=== PATIENT | male | born 1950 | race Caucasian/White ===

== ENCOUNTER → 2016-06-11 | Outpatient (CLI) | payer OTHER ==
[2016-06-11 14:14] LABS: BASOPHILS # (AUTO) 0.03 10*3/UL; BASOPHILS % (AUTO) 0.5 % (0-1); EOSINOPHILS # (AUTO) 0.11 10*3/UL; EOSINOPHILS % (AUTO) 1.7 % (0-8); HEMATOCRIT 42.6 % (42.0-52.0); HEMOGLOBIN 14.4 g/dL (14.0-18.0); LYMPHOCYTES # (AUTO) 1.45 10*3/uL; MEAN CORPUSCULAR HEMOGLOBIN 30.6 PG (27-31); MEAN CORPUSCULAR HGB CONC 33.8 g/dL (33-37); MEAN CORPUSCULAR VOLUME 90.6 FL (80-90); MEAN PLATELET VOLUME 9.8 FL (7.4-12.2); MONOCYTES # (AUTO) 0.65 10*3/UL (0.3-0.8); NEUTROPHILS # (AUTO) 4.22 10*3/UL; NEUTROPHILS % (AUTO) 65.2 % (50-80)
[2016-06-11 14:19] LABS: PLATELET MORPHOLOGY COMMENT NORMAL MORPHOLOGY (NORM); RBC MORPHOLOGY COMMENT NORMAL MORPHOLOGY (NORM); WBC MORPHOLOGY COMMENT NORMAL MORPHOLOGY (NORM)
[2016-06-11 14:24] LABS: BILIRUBIN,URINE NEGATIVE (NEG); COLOR,URINE YELLOW; GLUCOSE, URINE (UA) NEGATIVE (NEG); NITRATE,URINE NEGATIVE (NEG); OCCULT BLOOD,URINE NEGATIVE (NEG); PH,URINE 6.5 (5.0-8.5); PROTEIN,URINE NEGATIVE (NEG); UROBILINOGEN,URINE 0.2 mg/dL (0.2)
[2016-06-11 14:27] LABS: BLOOD UREA NITROGEN 16 mg/dL (7-22); CALCIUM 9.1 mg/dL (8.7-10.7); CHOL/HDL RATIO 4.17 RATIO (0-4.0); EST GLOMERULAR FILTRATION > 60 (>60 ml/min/1.73m(2)); HDL CHOLESTEROL 52 mg/dL (40-150); MAGNESIUM 2.1 mg/dL (1.6-2.4); SERUM ALBUMIN 4.1 g/dL (3.5-4.8); SERUM CHOLESTEROL 217 mg/dL (120-200)
[2016-06-11 15:03] LABS: CLARITY,URINE CLEAR (CLEAR); URINE SAMPLE TYPE VOID
[2016-06-11 15:32] LABS: VITAMIN D 25-HYDROXY 28.9 NG/ML (30-100)
== END ==
LOC: MOB LAB 10:45
DX: I10 Essential (primary) hypertension (principal); R25.2 Cramp and spasm; E78.5 Hyperlipidemia, unspecified; E55.9 Vitamin D deficiency, unspecified; M54.16 Radiculopathy, lumbar region; Z12.5 Encounter for screening for malignant neoplasm of prostate
CPT/HCPCS: 36415; 80053; 80061; 81001; 82306; 83735; 84153; 84443; 85025; 99213; G0463

== ENCOUNTER → 2016-06-18 | Outpatient (CLI) | payer OTHER ==
--- NOTE | 2016-06-18 11:04 | DI ---
LUMBAR SPINE SERIES, 06/18/2016 10:05 AM: Clinical History: Lumbar pain. Previous Exam: None at this facility. Upright AP and lateral and upright lateral flexion and extension views are submitted. The vertebral b odies are of normal height and size. There is moderate to severe disc space narrowing from L2-3 throu gh L5-S1. There is a minimal grade 1 spondylolisthesis at L4-5 and no instability is noted with flexi on and extension maneuvers. Degenerative arthritic changes are present in the left L2-3 and L3-4 apop hyseal joints, as well as the L4-5 and L5-S1 apophyseal joints bilaterally. The pedicles and remainin g posterior elements are unremarkable. Both SI joints are normal. There is levoscoliosis of the mid l umbar spine. Readin. There is disc space narrowing from L2-3 through L5-S1 with a minimal grade 1 spondylolisthesis at L4-5. No instability is noted with flexion and extension maneuvers. 2. Degenerative arthritic changes are present bilaterally at L4-5 and L5-S1 and unilaterally on the left side at L2-3 and L3-4.
--- NOTE | 2016-06-18 11:25 | DI ---
MRI LUMBAR SPINE SCAN WITHOUT IV CONTRAST, 06/18/2016 9:52 AM: Clinical History: Lumbar pain. Previous Exam: None. Technique: Sagittal and axial T2 weighted; sagittal T1 weighted and T2 STIR; and axial PD. The vertebral bodies are of normal height and size. There is moderate to severe disc space narrowing at L4-5 and L5-S1 with mild disc space narrowing at L2-3 and L3-4. Desiccation changes are present pr imarily at L4-5 and L5-S1. The cord terminates at T12-L1 and the conus medullaris is normal. The T10- 11 disc space is normal. T11-12 has a minimally circumferentially bulging but not herniated disc with out canal or neural foraminal stenosis. T12-L1 and L1-2 disc spaces are normal. L2-3 has a circumfere ntially bulging but not herniated disc without canal or neural foraminal stenosis. Mild hypertrophic changes are present in the apophyseal joints and ligamentum flavum. L3-4 has a circumferentially bulg ing but not herniated disc with hypertrophic changes of the apophyseal joints and ligamentum flavum. There is no canal or neural foraminal stenosis. L4-5 has a circumferentially bulging but not herniate d disc with marked hypertrophic changes of the apophyseal joints and ligamentum flavum bilaterally pr oducing severe spinal canal stenosis without neural foraminal stenosis. L5-S1 has a bulging but not h erniated disc without canal or neural foraminal stenosis. Readin. There is severe spinal canal stenosis at L4-5 secondary to a bulging but not herniated disc and m arked hypertrophic changes of the apophyseal joints and ligamentum flavum. There is no neural foramin al stenosis. 2. T12-L1, L2-3, L3-4, and L5-S1 have bulging but not herniated discs without canal or neural forami nal stenosis. There are hypertrophic changes of the apophyseal joints and ligamentum flavum at L2-3 a nd L3-4. 3. The T10-11, T12-L1, and L2-3 disc spaces are normal.
== END ==
LOC: MRI 09:45
PROVIDERS: ATTEND Physician Assistant
DX: M54.5 Low back pain (principal); M47.816 Spondylosis without myelopathy or radiculopathy, lumbar region
CPT/HCPCS: 72110; 72148

== ENCOUNTER → 2016-06-21 | Outpatient (CLI) | payer OTHER ==
--- NOTE | 2016-06-21 16:05 | DI ---
AP PELVIS and LEFT HIP, 06/21/2016 12:20 PM: Clinical History: Left hip pain. Previous Exam: None at this facility. There is no soft tissue abnormality. The bony structures of the pelvis are normal. 2 views of the lef t hip show mild narrowing of the superior aspect of the joint space. There is no evidence of femoroac etabular impingement on either side. Readin. Mild superior left joint space narrowing consistent with mild degenerative change. 2. The AP pelvis view is unremarkable.
== END ==
LOC: MOB RAD 12:22
PROVIDERS: ATTEND Neurological Surgery
DX: M47.26 Other spondylosis with radiculopathy, lumbar region (principal); M16.12 Unilateral primary osteoarthritis, left hip; M25.552 Pain in left hip; M21.372 Foot drop, left foot
CPT/HCPCS: 73502; 99204; G0463

== ENCOUNTER → 2016-06-27 | Outpatient (CLI) | payer OTHER | LOC: MMPC 10:00 | PROVIDERS: ATTEND Orthopaedic Surgery | DX: M16.12 Unilateral primary osteoarthritis, left hip (principal) | CPT/HCPCS: 99203; G0463 ==

== ENCOUNTER → 2016-09-26 | Outpatient (CLI) | payer OTHER | LOC: MMPC 11:11 | DX: M47.26 Other spondylosis with radiculopathy, lumbar region (principal); R53.82 Chronic fatigue, unspecified; E55.9 Vitamin D deficiency, unspecified; E78.5 Hyperlipidemia, unspecified; I10 Essential (primary) hypertension; K21.9 Gastro-esophageal reflux disease without esophagitis | CPT/HCPCS: 99213; G0463 ==